=== PATIENT | female | born 1980 | race Caucasian/White ===

== ENCOUNTER → 2019-08-06 | Outpatient (CLI) | payer BC ==
--- NOTE | 2019-08-07 08:07 | MM ---
Reason for exam: screening (asymptomatic). Baseline mammogram. History: Family history of breast cancer in maternal grandmother at age 50. Physical Findings: Nurse did not find any significant physical abnormalities on exam. MG Screening Mammo w CAD Bilateral CC and MLO view(s) were taken. There are scattered fibroglandular densities. Benign appearing bilateral calcifications. No suspicious abnormality. These results were verbally communicated with the patient and result sheet given to the patient on 08/06/19. ASSESSMENT: Benign, BI-RAD 2 RECOMMENDATION: Routine screening mammogram of both breasts in 1 year.
== END | disposition home or self-care (01) ==
LOC: RADMAMWWP 15:08 → MERGE 15:20
PROVIDERS: ATTEND Obstetrics & Gynecology
DX: Z12.31 Encounter for screening mammogram for malignant neoplasm of breast (principal)
CPT/HCPCS: 77067

== ENCOUNTER 2019-11-02 12:23 | Emergency (ER) | payer BC ==
[2019-11-02 12:27] VITALS: RESP 18; TEMP 98
--- NOTE | 2019-11-02 12:44 | ED ---
General Adult HPI - General Chief complaint: Shortness of Breath Stated complaint: WON Time Seen by Provider: 11/02/19 12:25 Source: patient, RN notes reviewed, old records reviewed Mode of arrival: ambulatory Limitations: no limitations - History of Present Illness Initial comments: This is a 39-year-old female presents emergency Department complaining that she felt a little short of breath the last couple of days. Patient states she was given some steroids for a sinus congestion earlier in the week she finished those and she now feels a little short of breath. Patient states she has a dry cough but no sputum production. Patient denies any fever chills. Patient denies any swelling to the legs or calf tenderness. Patient denies any cold. P ositive interactions. Patient denies any recent travel or trip. Patient denies any actual chest pain or heaviness. Patient states she didn't really want to come in but her mother made her so anxious about a centimeter that she decided come in. - Related Data Previous Rx's Medication Instructions Recorded Acetaminophen-Codeine 300-30mg 1 - 2 each PO Q4HR PRN #30 tab 06/04/15 [Tylenol w/codeine #3] Ibuprofen [Motrin] 600 mg PO Q6HR PRN #40 tab 06/04/15 Allergies Allergy/AdvReac Type Severity Reaction Status Date / Time No Known Allergies Allergy Verified 11/02/19 12:27 Review of Systems ROS Statement: Those systems with pertinent positive or pertinent negative responses have been documented in the HPI. ROS Other: All systems not noted in ROS Statement are negative. Past Medical History Past Medical History: No Reported History Additional Past Medical History / Comment(s): arthritis, uterine fibroids. History of Any Multi-Drug Resistant Organisms: None Reported Past Surgical History: Orthopedic Surgery Additional Past Surgical History / Comment(s): knee, 2009,2010 Past Anesthesia/Blood Transfusion Reactions: No Reported Reaction Past Psychological History: No Psychological Hx Reported Smoking Status: Never smoker Past Alcohol Use History: None Reported Past Drug Use History: None Reported - Past Family History Mother Family Medical History: Diabetes Mellitus General Exam - General Exam Comments Initial Comments: GENERAL: Patient is well-developed and well-nourished. Patient is nontoxic and well- hydrated and is in no acute distress. ENT: Neck is soft and supple. No significant lymphadenopathy is noted. Oropharynx is clear. Moist mucous membranes. Neck has full range of motion without eliciting any pain. EYES: The sclera were anicteric and conjunctiva were pink and moist. Extraocular movements were intact and pupils were equal round and reactive to light. Eyelids were unremarkable. PULMONARY: Unlabored respirations. Good breath sounds bilaterally. No audible rales rhonchi or wheezing was noted. CARDIOVASCULAR: There is a regular rate and rhythm without any murmurs gallops or rubs. ABDOMEN: Soft and nontender with normal bowel sounds. SKIN: Skin is clear with no lesions or rashes and otherwise unremarkable. NEUROLOGIC: Patient is alert and oriented x3. Cranial nerves II through XII are grossly intact. Motor and sensory are also intact. Normal speech, volume and content. Symmetrical smile. Cerebellar exam grossly intact. MUSCULOSKELETAL: Normal extremities with adequate strength and full range of motion. No lower extremity swelling or edema. No calf tenderness. LYMPHATICS: No significant lymphadenopathy is noted PSYCHIATRIC: Normal psychiatric evaluation. Limitations: no limitations Course Vital Signs 11/02/19 11/02/19 11/02/19 12:25 12:35 13:11 Temperature 98.0 F Pulse Rate 108 H 86 Respiratory 18 18 Rate Blood Pressure 133/92 147/102 117/78 O2 Sat by Pulse 99 99 Oximetry Medical Decision Making - Medical Decision Making Patient's chest x-ray showed no acute abnormality. Patient's EKG showed normal sinus rhythm 76 bpm LA interval 260 QRS is 82 QT interval 350 QTC is 393. I will back into the room to reevaluate the patient she stated she felt much better she believe a lot of this is probably secondary to her anxiety. Currently oxygenating 99% on room air. Patient's heart rate was consistently in the 70s. Disposition Clinical Impression: Upper respiratory infection Disposition: HOME SELF-CARE Condition: Good Instructions (If sedation given, give patient instructions): Upper Respiratory Infection (ED) Is patient prescribed a controlled substance at d/c from ED?: No Referrals: Prince Ruvalcaba MD [Primary Care Provider] - 1-2 days Time of Disposition: 13:30
--- NOTE | 2019-11-02 13:01 | XR ---
EXAMINATION TYPE: XR chest 2V DATE OF EXAM: 11/02/2019 HISTORY: Difficulty breathing . REFERENCE: NONE. FINDINGS: There is some platelike atelectasis at the right lung base and also in the right upper lobe . Left lung is clear. Pleural spaces appear clear. The heart is not enlarged. IMPRESSION: PLATELIKE ATELECTASIS, RIGHT LUNG.
[2019-11-02 13:07] VITALS: PULSE 86
[2019-11-02 13:15] VITALS: BP 117/78
== END 2019-11-02 13:44 | disposition home or self-care (01) ==
LOC: EC 12:23
DX: J06.9 Acute upper respiratory infection, unspecified (principal)
CPT/HCPCS: 71046; 93005; 99285

== ENCOUNTER → 2020-03-31 | Outpatient (CLI) | payer BC ==
--- NOTE | 2020-03-31 13:41 | US ---
EXAMINATION TYPE: US transvaginal DATE OF EXAM: 03/31/2020 COMPARISON: NONE CLINICAL HISTORY: R10.2 PELVIC PAIN. painful intercourse, on control, h/o cysts TECHNIQUE: TV. Transvaginal sonographic images Date of LMP: 1 week ago EXAM MEASUREMENTS: Uterus: 10.7 x 6.9 x 5.1 cm Endometrial Stripe: 1.5 cm Right Ovary: 2.7 x 2.3 x 2.1 cm Left Ovary: not seen 1. Uterus: Anteverted 2 fibroids, largest left sided = 5.8 x 4.8 x 5.1cm, midline fibroid = 2.8 x 1.8 x 2.1cm 2. Endometrium: Thickened 3. Right Ovary: WNL 4. Left Ovary: not seen 5. Bilateral Adnexa: WNL 6. Posterior cul-de-sac: WNL Tiny nabothian cysts are seen in the cervix. Endometrium poorly defined, suspect abnormally thickened . Fibroids are identified. There is 5.8 cm left intramural fibroid noted. Smaller 2.8 cm hypoechoic f undal intramural fibroid noted. No free fluid in pelvis. Right ovary is seen and normal in size. Left ovary not identified. IMPRESSION: Fibroid uterus redemonstrated more prominent or increased in size of larger fibroids from 2014 study.
== END | disposition home or self-care (01) ==
LOC: RADUSWWP 07:45
PROVIDERS: ATTEND Obstetrics & Gynecology
DX: D25.9 Leiomyoma of uterus, unspecified (principal)
CPT/HCPCS: 76830

== ENCOUNTER → 2020-07-30 | Outpatient (CLI) | payer BC ==
[2020-07-30 09:19] LABS: Basophils % (A) 0 %; Eosinophils # (A) 0.3 k/uL (0-0.7); Eosinophils % (A) 3 %; HCT 38.4 % (34.0-46.0); HGB 13.9 gm/dL (11.4-16.0); Lymphocytes # (A) 3.5 k/uL (1.0-4.8); Lymphocytes % (A) 29 %; MCH 30.3 pg (25.0-35.0); MCHC 36.1 g/dL (31.0-37.0); Mean Platelet Volume 7.4; Monocytes # (A) 0.7 k/uL (0-1.0); Monocytes % (A) 6 %; Neutrophils # (A) 7.2 k/uL (1.3-7.7); Neutrophils % (A) 61 %; Platelet Count 217 k/uL (150-450); Poikilocytosis Slight; RBC 4.58 m/uL (3.80-5.40); RDW 15.9 % (11.5-15.5); WBC 11.8 k/uL (3.8-10.6)
[2020-07-30 17:29] LABS: African American GFR (CKD) 131.2 (60.0-200.0); Anion Gap 8.7 mmol/L (4.00-12.00); Calcium 9.3 mg/dL (8.7-10.3); Carbon Dioxide 27.3 mmol/L (21.6-31.8); Non-African American GFR(CKD) 113.2 (60.0-200.0); Potassium 4.3 mmol/L (3.5-5.5)
== END | disposition home or self-care (01) ==
LOC: LABWHC1 07:56
PROVIDERS: ATTEND Obstetrics & Gynecology
DX: Z01.818 Encounter for other preprocedural examination (principal)
CPT/HCPCS: 36415; 80048; 85025

== ENCOUNTER 2020-08-06 05:53 | Observation (INO) | payer BC ==
[2020-07-29 14:29] VITALS: BMI 36.3
--- NOTE | 2020-08-05 17:22 | P.HPOB ---
History of Present Illness H&P Date: 08/05/20 Chief Complaint: Dysfunctional uterine bleeding and fibroid uterus Patient is a 39-year-old female who has dysfunctional bleeding, heavy vaginal bleeding and known fibroids. She is noted have 2 cm, 2.8, and 5.8 cm fibroids in her uterus. She previously had an endometrial biopsy which was normal. She is scheduled for robotic-assisted laps up hysterectomy with possible MARISSA and possible BSO. Risks/benefits/alternatives to this procedure were discussed with the patient in detail including but not limited to bleeding and infection, damage to bladder/bowel/her/ureters/vessels possible need further surgeries. and all questions were answered for her prior to proceeding to the operative room. We also expect to do bilateral salpingectomy at the same time. Past Medical History Past Medical History: Musculoskeletal Disorder, Osteoarthritis (OA) Additional Past Medical History / Comment(s): uterine fibroids, current heel spur left foot History of Any Multi-Drug Resistant Organisms: None Reported Past Surgical History: Orthopedic Surgery Additional Past Surgical History / Comment(s): arthroscopic knee surg. 2008,2009 Past Anesthesia/Blood Transfusion Reactions: No Reported Reaction Smoking Status: Never smoker - Past Family History Mother Family Medical History: Diabetes Mellitus Medications and Allergies Home Medications Medication Instructions Recorded Confirmed Type Naproxen [Naprosyn] 500 mg PO Q12HR PRN 07/29/20 07/29/20 History Allergies Allergy/AdvReac Type Severity Reaction Status Date / Time No Known Allergies Allergy Verified 07/29/20 14:02 Exam Osteopathic Statement: *. No significant issues noted on an osteopathic structural exam other than those noted in the History and Physical/Consult. - OBG Physical Exam Breast: both: normal (no masses) Abdomen: bowel sounds normal, no diffuse tenderness, no bruit present, no guarding noted, no hepatomegaly, no splenomegaly, no mass Vulva: both: normal Vagina: normal moisture, no discharge Cervix: no lesion, no discharge Uterus: normal size, normal contour Adnexa: both: normal Anus/Rectum: normal perianal skin, no rectal mass, no hemorrhoids, heme negative
[~2020-08-06 05:53] MED LIST: DEXAMETHASONE SOD PHOSPHATE 4 MG/ML 1 ML VIAL IV ONE; ONDANSETRON 4 MG/2 ML VIAL IVP ONE
[2020-08-06] MEDS: LACTATED RINGERS 1,000 ML IV SCH (06:32)
[2020-08-06] MEDS ORDERED: ALBUTEROL INHALER 60 PUFF/8 GM INHALER (MHU) INHALATION ONE (07:35)
[2020-08-06] MEDS ORDERED: NEOSTIGMINE 1 MG/ML 10 ML VIAL ONE (07:35)
[2020-08-06] MEDS ORDERED: diphenhydrAMINE 50 MG/ML 1 ML VIAL ONE (07:35)
[2020-08-06] MEDS ORDERED: fentaNYL (PF) 50 MCG/ML 2 ML AMP ONE (07:35)
[2020-08-06] MEDS ORDERED: ROCURONIUM 10 MG/ML (10 ML VIAL) IV ONE (07:35)
[2020-08-06] MEDS ORDERED: SUCCINYLCHOLINE CHLORIDE 100 MG/5 ML SYR IV ONE (07:35)
[2020-08-06] MEDS ORDERED: HYDROmorphone (PF) 1 MG/ML ONE (07:35)
[2020-08-06] MEDS ORDERED: GLYCOPYRROLATE 0.2 MG/ML 2 ML VIAL ONE (07:35)
[2020-08-06] MEDS ORDERED: PROPOFOL 10 MG/ML 20 ML VIAL IV ONE (07:35)
[2020-08-06] MEDS ORDERED: MIDAZOLAM 2 MG/2 ML VIAL ONE (07:35)
[2020-08-06] MEDS ORDERED: BUPIVACAINE (PF) 0.25% 30 ML VIAL SQ ONE ×3 (08:08→09:14)
[2020-08-06] MEDS ORDERED: LACTATED RINGERS 1,000 ML IV ONE (09:14)
[2020-08-06] MEDS ORDERED: SIMETHICONE 80 MG CHEWABLE PO PRN (09:21)
[2020-08-06] MEDS ORDERED: ONDANSETRON 4 MG/2 ML VIAL IVP PRN (09:21)
[2020-08-06] MEDS ORDERED: HYDROcodone/APAP 5-325MG 1 EACH TAB PO PRN ×2 (09:23)
--- NOTE | 2020-08-06 09:30 | P.OP ---
Date of Procedure: 08/06/20 Preoperative Diagnosis: Name: Dysfunctional uterine bleeding: Fibroid uterus Postoperative Diagnosis: Same Procedure(s) Performed: Robotic-assisted laparoscopic hysterectomy with bilateral salpingectomy Anesthesia: GAYE Surgeon: Matthew Jama Assistant Teaching Professor #1: Rissa Raymond Estimated Blood Loss (ml): 50 IV fluids (ml): 800 Urine output (ml): 500 Pathology: other (Uterus, cervix, bilateral fallopian tubes) Condition: stable Disposition: floor Operative Findings: Grossly enlarged posterior lateral to the left side fibroid of at least 6 cm Description of Procedure: Patient was taken to the operating suite where a general anesthetic was found to be adequate. She was prepped and draped in the normal sterile fashion and placed in dorsal lithotomy position. Initially weighted speculum was inserted into the vagina and the anterior lip of the cervix was was identified, grasped with a sickle to tenaculum and sounded to 10 cm. Cervix size was then measured to 4 cm and a Chelsea manipulator with appropriate size and manipulator were inserted without difficulty with stay sutures placed at 3 and 9. Once this was accomplished maximal uterine descent was measured and marked on her abdomen and a Berrios catheter was placed. Other incidents were then removed from the vagina. Gloves were then changed and attention was turned to the abdominal portion procedure where 2 mL of quarter percent Marcaine was injected approximate 2 cm above the umbilicus in the midline. Through this injected anesthetic a 5 mm skin incision was made and through this incision, under direct visualization with an optical trocar and sleeve, the camera was inserted. Once peritoneal placement was assured gas was allowed to fully insufflate the abdomen and patient was then placed in a very steep Trendelenburg position. 2 lateral ports were then placed 10 cm lateral to the umbilicus on the right and left side through 8 mm skin incisions. These were inserted again under direct visualization. Fourth port and sleeve was then inserted through a 1 cm incision between the left lateral and medial port. Robot was then brought in and docked and patient placed in a 25 Trendelenburg position. Once fully docked a scissor was placed in the one arm and a [place] grasper in the 2 arm and at this point I broke scrub and went to the console. Uterus was then elevated and tipped to the right-hand side. Very large posterior lateral fibroid was noted. Berrios tube was then elevated and using [place] to cauterize the mesosalpinx tissues cauterized and transected and then removed from the operative field once transected so it was out of the operative field. Once completed uterus ovarian ligament was then identified cauterized with the bipolar and then transected. Moving through the mesosalpinx tissues to the round ligament tissues cauterized transected and once round ligament was cauterized and transected leafs of the broad ligament were attempted to be fully developed, but with large posterior lateral fibroid inside the dissection was somewhat limited in that regard. Once staff layer of the bladder flap was cauterizing and transecting the vascularity along the lateral border of the uterus the bladder flap was entered and then undermined with [place] and incised across face uterus then removing the bladder from the operative field. Once this was fully developed and attention was turned to the right side of the uterus which and filled similar fashion was then fully developed. Once completed and bladder out of the operative field the balloon was blown up in the Chelsea manipulator and an anterior colpotomy was made. We did follow the couple around in a 360 fashion in a clockwise fashion as this was much easier to see away from the fibroid. Careful dissection was done during the entire process to maintain visualization when needed of the ureters and stay right on the cup of the Chelsea manipulator so the excess vaginal mucosa was not removed due to the fact that there was already a force centimeter cup placed once 3 and 60 was done the uterus and fibroid brought into the vagina to maintain pneumoperitoneum. Once excellent hemostasis was noted across all pedicles and vaginal cuff area, incidents were exchanged for a make suture cut and Marck grasper and the vaginal cuff was closed with 2 OB lock suture in a running fashion. Once excellent hemostasis was obtained throughout all areas pelvis was irrigated and with no bleeding noted all incidents removed and gas was allowed to expel from the abdomen. 5 deep breaths were provided during this process. At this point I re-scrubbed in and did a cystoscopy with good flow noted from both ureteral jets and Dr. Raymond close the incision subcuticularly. The remaining 8 mL of quarter percent Marcaine was then injected around these incisions. Sponge, lap, needle counts were all correct 2. Patient was then taken to the recovery room in stable and satisfactory condition..
[2020-08-06] MEDS ORDERED: HYDROmorphone 0.5 MG/0.5 ML SYRINGE IVP ONE ×2 (10:03→10:05)
[2020-08-06] MEDS: KETOROLAC 15 MG/ML 1 ML VIAL IVP PRN ×3 (10:07→21:14)
[2020-08-06] MEDS: SENNOSIDES-DOCUSATE SODIUM 1 EACH TAB PO SCH (21:14)
[2020-08-07] MEDS: LACTATED RINGERS 1,000 ML IV SCH (06:40)
[2020-08-07] MEDS: KETOROLAC 15 MG/ML 1 ML VIAL IVP PRN (06:46)
[2020-08-07 07:21] LABS: Anisocytosis Slight; Basophils % (A) 0 %; Eosinophils % (A) 0 %; HCT 36.8 % (34.0-46.0); HGB 12.6 gm/dL (11.4-16.0); Lymphocytes # (A) 2.3 k/uL (1.0-4.8); Lymphocytes % (A) 12 %; MCH 28.8 pg (25.0-35.0); MCHC 34.2 g/dL (31.0-37.0); MCV 84.3 fL (80.0-100.0); Mean Platelet Volume 7.3; Monocytes % (A) 5 %; Neutrophils % (A) 82 %; Platelet Count 224 k/uL (150-450); Poikilocytosis Slight; RBC 4.37 m/uL (3.80-5.40); RDW 16.2 % (11.5-15.5); WBC 19.5 k/uL (3.8-10.6)
--- NOTE | 2020-08-07 09:06 | P.DS ---
Providers Date of admission: 08/06/20 23:41 Expected date of discharge: 08/07/20 Attending physician: Matthew Jama Primary care physician: Prince Beal Lds Hospital Course: Watson is doing very well postop day 1. She is ambulating, voiding and she is passing flatus. She voices no complaints. It is noted that her white blood cell count is 19, however this likely is reactionary. She has no fever chills nausea or vomiting and no other signs or symptoms of acute infection. She is requesting discharge to home today. Prescription for [place] was 40 to her pharmacy. She has Naprosyn at home to take. Vital signs stable and afebrile. Heart regular, lungs clear, extremities are without pain. Abdomen is soft, positive bowel sounds are noted and her incisions are intact. Assessment postop day 1. Plan discharged home follow up with me in 1 week. Patient Condition at Discharge: Good Plan - Discharge Summary Discharge Rx Participant: Yes New Discharge Prescriptions: New HYDROcodone/APAP 5-325MG [[place] 5-325] 1 tab PO Q4HR PRN #30 tab PRN Reason: Pain No Action Naproxen [Naprosyn] 500 mg PO Q12HR PRN PRN Reason: Pain Discharge Medication List Naproxen [Naprosyn] 500 mg PO Q12HR PRN 07/29/20 [History] HYDROcodone/APAP 5-325MG [[place] 5-325] 1 tab PO Q4HR PRN #30 tab 08/07/20 [Rx] Follow up Appointment(s)/Referral(s): aMtthew Jama DO [Doctor of Osteopathic Medicine] - 1 Week Activity/Diet/Wound Care/Special Instructions: No heavy lifting, limit stairs and driving, pelvic rest. If any high temperatures, heavy bleeding, or severe pain call my office no tub baths for 2 weeks showering is Discharge Disposition: HOME SELF-CARE
[2020-08-07 09:17] VITALS: BP 112/68; PULSE 79; RESP 20; TEMP 98.2
[2020-08-07] MEDS: SENNOSIDES-DOCUSATE SODIUM 1 EACH TAB PO SCH (09:44)
== END 2020-08-07 10:40 | disposition home or self-care (01) ==
LOC: OR 05:53 → 6PED 09:17 → OR 23:41 → 6PED 08-07 01:51 → OR 08-07 01:51
PROVIDERS: ADMIT Obstetrics & Gynecology; ATTEND Obstetrics & Gynecology
DX: D25.2 Subserosal leiomyoma of uterus (principal); N80.0 Endometriosis of uterus; N72 Inflammatory disease of cervix uteri; M19.90 Unspecified osteoarthritis, unspecified site; M77.32 Calcaneal spur, left foot; Z79.1 Long term (current) use of non-steroidal anti-inflammatories (NSAID); Z83.3 Family history of diabetes mellitus
CPT/HCPCS: 58573; S2900; 81025; 85025; 86850; 86900; 86901; 88307

== ENCOUNTER 2021-01-29 19:15 | Emergency (ER) | payer BC ==
[2021-01-29 19:20] VITALS: BP 140/83; PULSE 123; RESP 16; TEMP 98.2
--- NOTE | 2021-01-29 19:52 | ED ---
Wound/Laceration HPI - General Chief Complaint: Wound/Laceration Stated Complaint: Tongue injury Time Seen by Provider: 01/29/21 19:23 Source: patient Mode of arrival: ambulatory Limitations: no limitations - History of Present Illness Initial Comments: 48-year-old female presents to emergency Department with a chief complaint of laceration to the tongue. This occurred about one hour prior to arrival. 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 States she was eating salad and drinking from a straw when she noticed a bleed that occurred. She denies any significant injury to the tongue. She denies significant pain from the region. No blood thinners. - Related Data Home Medications Medication Instructions Recorded Confirmed Naproxen [Naprosyn] 500 mg PO Q12HR PRN 07/29/20 08/06/20 Previous Rx's Medication Instructions Recorded HYDROcodone/APAP 5-325MG [[place] 1 tab PO Q4HR PRN #30 tab 08/07/20 5-325] Allergies Allergy/AdvReac Type Severity Reaction Status Date / Time No Known Allergies Allergy Verified 01/29/21 19:19 Review of Systems ROS Statement: Those systems with pertinent positive or pertinent negative responses have been documented in the HPI. ROS Other: All systems not noted in ROS Statement are negative. Past Medical History Past Medical History: Musculoskeletal Disorder, Osteoarthritis (OA) Additional Past Medical History / Comment(s): uterine fibroids, current heel spur left foot History of Any Multi-Drug Resistant Organisms: None Reported Past Surgical History: Hysterectomy, Orthopedic Surgery Additional Past Surgical History / Comment(s): arthroscopic knee surg. 2008,2009 Past Anesthesia/Blood Transfusion Reactions: No Reported Reaction Past Psychological History: No Psychological Hx Reported Smoking Status: Never smoker Past Alcohol Use History: Occasional Past Drug Use History: None Reported - Past Family History Mother Family Medical History: Diabetes Mellitus General Exam Limitations: no limitations General appearance: alert, in no apparent distress, obese Head exam: Present: atraumatic, normocephalic, normal inspection Eye exam: Present: normal appearance, PERRL, EOMI Pupils: Present: normal accommodation ENT exam: Present: normal exam, mucous membranes moist, TM's normal bilaterally, normal external ear exam. Absent: normal oropharynx (Geographic tongue. Small laceration measuring approximately 0.5 cm in the midline of the tongue.) Neck exam: Present: normal inspection, full ROM Respiratory exam: Present: normal lung sounds bilaterally. Absent: respiratory distress Cardiovascular Exam: Present: regular rate, normal rhythm, normal heart sounds. Absent: systolic murmur Extremities exam: Present: normal inspection, full ROM Back exam: Present: normal inspection, full ROM Neurological exam: Present: alert, oriented X3 Psychiatric exam: Present: normal affect, normal mood Skin exam: Present: warm, dry, intact, normal color Course Vital Signs 01/29/21 19:17 Temperature 98.2 F Pulse Rate 123 H Respiratory 16 Rate Blood Pressure 140/83 O2 Sat by Pulse 99 Oximetry Medical Decision Making - Medical Decision Making 40-year-old female presents to emergency department with a chief complaint of a laceration to the tongue. On physical examination, the laceration site is quite small. I did inject very small amount of lidocaine with epinephrine which stopped the bleeding. Patient will be discharged with outpatient follow-up. Case discussed with Dr. Mcdaniel Disposition Clinical Impression: Tongue laceration Disposition: HOME SELF-CARE Condition: Stable Instructions (If sedation given, give patient instructions): Laceration (DC) Additional Instructions: Please return to the Emergency Department if symptoms worsen or any other concerns. Is patient prescribed a controlled substance at d/c from ED?: No Referrals: Prince Ruvalcaba MD [Primary Care Provider] - 1-2 days Time of Disposition: 19:52
== END 2021-01-29 20:33 | disposition home or self-care (01) ==
LOC: EC 19:15
DX: S01.512A Laceration without foreign body of oral cavity, initial encounter (principal); M19.90 Unspecified osteoarthritis, unspecified site; X58.XXXA Exposure to other specified factors, initial encounter
CPT/HCPCS: 99282